=== PATIENT | female | born 1975 | race Caucasian/White ===

== ENCOUNTER 2017-10-23 20:28 | Emergency (ER) | payer OTHER ==
[~2017-10-23 20:28] MED LIST: FLEXERIL10 MG PO; MEDROL DOSEPAK1 PAC PO; MOTRIN800 MG PO
[2017-10-23] MEDS ORDERED: IBUPROFEN800 M1 PO (22:37)
[2017-10-23] MEDS ORDERED: CYCLOBENZAPRINE10 M1 PO (22:37)
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
[2017-10-23 22:42] VITALS: BP 142/84
== END 2017-10-23 22:42 ==
LOC: ERH 20:28
DX: S39.012A Strain of muscle, fascia and tendon of lower back, initial encounter (principal); V49.40XA Driver injured in collision with unspecified motor vehicles in traffic accident, initial encounter; Y92.9 Unspecified place or not applicable